=== PATIENT | female | born 2000 | race Hispanic/Latino ===

== ENCOUNTER 2022-06-25 15:35 | Emergency (ER) | payer BC, OTHER ==
[~2022-06-25] VITALS: Ht 160 cm; Wt 90.7 kg
[2022-06-25] MEDS ORDERED: ACETAMINOPHEN 325 MG TAB PO ONE (16:00)
[2022-06-25] MEDS ORDERED: ULTRAM 50MG50 MG PO (17:17)
== END 2022-06-25 18:31 | disposition home or self-care (01) ==
LOC: ER 15:42
DX: S42.001A Fracture of unspecified part of right clavicle, initial encounter for closed fracture (principal); S00.83XA Contusion of other part of head, initial encounter; V43.62XA Car passenger injured in collision with other type car in traffic accident, initial encounter; Y92.488 Other paved roadways as the place of occurrence of the external cause
CPT/HCPCS: 70450; 71046; 99283